=== PATIENT | male | born 1955 | race Caucasian/White ===

== ENCOUNTER 2017-11-22 17:27 | Emergency (ER) | payer BC, OTHER ==
[2017-11-22] MEDS ORDERED: Aspirin 81 MG Tab.Chew ONE (17:47)
[2017-11-22] MEDS ORDERED: Nitroglycerin 0.4 MG Tab.SL ONE (17:47)
[2017-11-22] MEDS ORDERED: Ondansetron 4 MG/2 ML SDV IV ONE ×2 (17:50→18:51)
[2017-11-22] MEDS ORDERED: HYDROmorphone 0.5 MG/0.5 ML Syringe IVPUSH ONE ×4 (17:50→21:17)
[2017-11-22] MEDS ORDERED: Aspirin 81 MG Tab.Chew PO ONE (17:50)
--- NOTE | 2017-11-22 18:12 | EDM.PDOC ---
<Ginny Pablo Hermelindo - Last Filed: 11/22/17 18:06> ED HPI GENERAL MEDICAL PROBLEM - General Chief Complaint: Chest Pain Stated Complaint: [id number] CHEST PAIN SWEATING SOB Time Seen by Provider: 11/22/17 17:30 Source of Information: Reports: Patient, Family, RN, RN Notes Reviewed History Limitations: Reports: No Limitations - History of Present Illness INITIAL COMMENTS - FREE TEXT/NARRATIVE: Jeffy is a 62 yo Male who arrives to the ED with complaints of chest pain. He relates that his pain started an hour ago while he was at work. He describes his pain as crushing pain to his mid chest radiating down to his abdomen. He describes it as "like something is sitting on my chest" Patient reports that he has been short of breath since the onset of symptoms. Reports that his pain is better with movement and deep breathing. He relates nausea, no emesis. Denies any recent illness including fever, cough, or sore throat. Onset: Today Onset Date: 11/22/17 Onset Time: 04:15 Location: Reports: Chest Quality: Reports: Pressure, Sharp Severity: Severe Improves with: Reports: None Worsens with: Reports: Breathing, Movement Associated Symptoms: Reports: Chest Pain, Diaphoresis, Nausea/Vomiting - Related Data Allergies Allergy/AdvReac Type Severity Reaction Status Date / Time No Known Allergies Allergy Verified 10/17/13 06:40 Home Meds: Home Meds Hydrochlorothiazide/Lisinopril [Lisinopril-HCTZ 10-12.5 MG] 10 - 12.5 mg PO DAILY 10/17/13 [History] Ibuprofen 800 mg PO BID 10/17/13 [History] Metoprolol Tartrate 25 mg PO BID 10/17/13 [History] Aspirin 81 mg PO DAILY 11/22/17 [History] Past Medical History Cardiovascular History: Reports: Hypertension ED ROS GENERAL - Review of Systems Review Of Systems: ROS reveals no pertinent complaints other than HPI. ED EXAM, GENERAL - Physical Exam Exam: See Below Exam Limited By: No Limitations General Appearance: Alert, Severe Distress, Obese, Other (Diaphoretic) Eye Exam: Bilateral Eye: PERRL Ears: Normal External Exam, Normal Canal, Hearing Grossly Normal, Normal TMs Ear Exam: Bilateral Ear: Auricle Normal, Canal Normal, TM normal Nose: Normal Inspection, Normal Mucosa, No Blood Throat/Mouth: Normal Inspection, Normal Lips, Normal Teeth, Normal Gums, Normal Oropharynx, Normal Voice, No Airway Compromise Head: Atraumatic, Normocephalic Neck: Normal Inspection, Supple, Non-Tender, Full Range of Motion Respiratory/Chest: Lungs Clear, Normal Breath Sounds, No Accessory Muscle Use, Chest Non-Tender Cardiovascular: Normal Peripheral Pulses, No Edema, No Gallop, No JVD, No Murmur , No Rub, Bradycardia GI/Abdominal: Normal Bowel Sounds, Soft, Non-Tender, No Organomegaly, No Distention, No Abnormal Bruit, No Mass (Male) Exam: Deferred Rectal (Males) Exam: Deferred Back Exam: Normal Inspection, Full Range of Motion, NT Extremities: Normal Inspection, Normal Range of Motion, Non-Tender, Normal Capillary Refill, No Pedal Edema Neurological: Alert, Oriented, CN II-XII Intact, Normal Cognition, Normal Gait, Normal Reflexes, No Motor/Sensory Deficits Psychiatric: Normal Affect, Normal Mood Skin Exam: Warm, No Rash, Diaphoretic, Pallor Lymphatic: No Adenopathy EKG INTERPRETATION EKG Date: 11/22/17 Time: 17:38 Rhythm: Other (Sinus janice) [place]: Normal P-Wave: Present QRS: Normal ST-T: Normal QT: Normal Course - Vital Signs Last Recorded V/S: Last Vital Signs Temp 35.3 C 11/22/17 19:51 Pulse 53 L 11/22/17 19:51 Resp 22 H 11/22/17 19:51 BP 165/80 H 11/22/17 19:51 Pulse Ox 94 L 11/22/17 19:51 - Orders/Labs/Meds Orders: Active Orders 24 hr Category Date Time Status EKG Documentation Completion [RC] URGENT Care 11/22/17 17:30 Active Abdomen Pelvis w Cont [CT] Stat Exams 11/22/17 18:49 Taken Chest 1V Frontal [CR] Urgent Exams 11/22/17 17:30 Taken AMYLASE [CHEM] Stat Lab 11/22/17 17:47 Results LIPASE [CHEM] Stat Lab 11/22/17 17:47 Results HYDROmorphone [Dilaudid] Med 11/22/17 20:37 Once 1 mg IVPUSH ONETIME ONE Lactated Ringers [Ringers, Lactated] 1,000 ml Med 11/22/17 19:45 Active IV ASDIRECTED Medication Orders Lactated Ringer's (Ringers, Lactated) 1,000 mls @ 150 mls/hr IV ASDIRECTED JIMI Last Admin: 11/22/17 19:46 Dose: 150 mls/hr Labs: Laboratory Tests 11/22/17 11/22/17 11/22/17 Range/Units 17:47 17:47 17:47 WBC 15.0 H (5.0-10.0) 10^3/uL RBC 5.39 (4.6-6.2) 10^6/uL Hgb 16.0 (14.0-18.0) g/dL Hct 47.5 (40.0-54.0) % MCV 88.1 (80-100) fL MCH 29.7 (27.0-34.0) pg MCHC 33.7 (33.0-35.0) g/dL Plt Count 273 (150-450) 10^3/uL Neut % (Auto) 57.1 (42.2-75.2) % Lymph % (Auto) 31.2 (20.5-50.1) % [place] % (Auto) 9.5 H (2-8) % Eos % (Auto) 1.7 (1.0-3.0) % Baso % (Auto) 0.5 (0.0-1.0) % PT (9.0-12.0) SEC INR (0.9-1.2) D-Dimer, Quantitative 591 H (0-400) ng/mL Sodium 140 (135-145) mmol/L Potassium 3.7 (3.6-5.0) mmol/L Chloride 103 (101-111) mmol/L Carbon Dioxide 25.0 (21.0-31.0) mmol/L Anion Gap 15.7 BUN 26 H (7-18) mg/dL Creatinine 1.1 (0.6-1.3) mg/dL Est Cr Clr Drug Dosing TNP Estimated GFR (MDRD) > 60 BUN/Creatinine Ratio 23.63 Glucose 153 H (74-105) mg/dL Calcium 9.1 (8.4-10.2) mg/dl Total Bilirubin 1.2 H (0.2-1.0) mg/dL AST 39 (10-42) IU/L ALT 43 (10-60) IU/L Alkaline Phosphatase 69 (42-121) IU/L Troponin I < 0.02 (0.00-0.02) ng/ml Total Protein 7.2 (6.7-8.2) g/dl Albumin 4.0 (3.2-5.5) g/dl Globulin 3.2 Albumin/Globulin Ratio 1.25 Amylase (28-100) U/L 11/22/17 11/22/17 Range/Units 17:47 17:47 WBC (5.0-10.0) 10^3/uL RBC (4.6-6.2) 10^6/uL Hgb (14.0-18.0) g/dL Hct (40.0-54.0) % MCV (80-100) fL MCH (27.0-34.0) pg MCHC (33.0-35.0) g/dL Plt Count (150-450) 10^3/uL Neut % (Auto) (42.2-75.2) % Lymph % (Auto) (20.5-50.1) % [place] % (Auto) (2-8) % Eos % (Auto) (1.0-3.0) % Baso % (Auto) (0.0-1.0) % PT 9.1 (9.0-12.0) SEC INR 0.9 (0.9-1.2) D-Dimer, Quantitative (0-400) ng/mL Sodium (135-145) mmol/L Potassium (3.6-5.0) mmol/L Chloride (101-111) mmol/L Carbon Dioxide (21.0-31.0) mmol/L Anion Gap BUN (7-18) mg/dL Creatinine (0.6-1.3) mg/dL Est Cr Clr Drug Dosing Estimated GFR (MDRD) BUN/Creatinine Ratio Glucose (74-105) mg/dL Calcium (8.4-10.2) mg/dl Total Bilirubin (0.2-1.0) mg/dL AST (10-42) IU/L ALT (10-60) IU/L Alkaline Phosphatase (42-121) IU/L Troponin I (0.00-0.02) ng/ml Total Protein (6.7-8.2) g/dl Albumin (3.2-5.5) g/dl Globulin Albumin/Globulin Ratio Amylase 1952 H (28-100) U/L Meds: Medications Generic Name Dose Route Start Last Admin Trade Name Bianca PRN Reason Stop Dose Admin Lactated Ringer's 1,000 mls @ 150 mls/hr 11/22/17 19:45 11/22/17 19:46 Ringers, Lactated IV 150 mls/hr ASDIRECTED JIMI Administration Discontinued Medications Generic Name Dose Route Start Last Admin Trade Name Bianca PRN Reason Stop Dose Admin Aspirin Confirm 11/22/17 17:47 11/22/17 17:58 Aspirin Administered 11/22/17 17:48 Not Given Dose 324 mg .ROUTE .STK-MED ONE Aspirin 324 mg 11/22/17 17:50 11/22/17 17:58 Aspirin PO 11/22/17 17:51 324 mg ONETIME ONE Administration Hydromorphone HCl 0.5 mg 11/22/17 17:50 11/22/17 17:58 Dilaudid IVPUSH 11/22/17 17:51 0.5 mg ONETIME ONE Administration Hydromorphone HCl 1 mg 11/22/17 18:51 11/22/17 18:56 Dilaudid IVPUSH 11/22/17 18:52 1 mg ONETIME ONE Administration Iopamidol 100 ml 11/22/17 18:17 Isovue-370 (76%) IVPUSH 11/22/17 18:18 ONETIME ONE Nitroglycerin Confirm 11/22/17 17:47 Nitrostat Administered 11/22/17 17:48 Dose 0.4 mg .ROUTE .STK-MED ONE Ondansetron HCl 4 mg 11/22/17 17:50 11/22/17 17:58 Zofran IV 11/22/17 17:51 4 mg ONETIME ONE Administration Ondansetron HCl 4 mg 11/22/17 18:51 11/22/17 18:56 Zofran IV 11/22/17 18:52 4 mg ONETIME ONE Administration Departure - Departure Disposition: DC/Tfer to [facility] 02 Clinical Impression: Pancreatitis, acute Qualifiers: Pancreatitis type: biliary Acute pancreatitis complication: unspecified Qualified Code(s): K85.10 - Biliary acute pancreatitis without necrosis or infection Forms: Interfacility Transfer EMTALA - My Orders Last 24 Hours: My Active Orders 11/22/17 17:47 AMYLASE [CHEM] Stat LIPASE [CHEM] Stat 11/22/17 19:45 Lactated Ringers [Ringers, Lactated] 1,000 ml IV ASDIRECTED 11/22/17 20:37 HYDROmorphone [Dilaudid] 1 mg IVPUSH ONETIME ONE - Assessment/Plan Last 24 Hours: My Active Orders 11/22/17 17:47 AMYLASE [CHEM] Stat LIPASE [CHEM] Stat 11/22/17 19:45 Lactated Ringers [Ringers, Lactated] 1,000 ml IV ASDIRECTED 11/22/17 20:37 HYDROmorphone [Dilaudid] 1 mg IVPUSH ONETIME ONE <Dmitriy sEpino - Last Filed: 11/22/17 20:40> ED HPI GENERAL MEDICAL PROBLEM Chest Pain Score (Numeric/FACES): 9 Course - Re-Assessments/Exams Free Text/Narrative Re-Assessment/Exam: 11/22/17 19:51 results discussed with pt who is much better presently. ate pizza for lunch but nothing prior to onset of Sx. 11/22/17 20:[address] Mann @ who kindly accepted pt. Departure - Departure Time of Disposition: 20:37 Reason for Transfer *Q: Other Condition: Fair
[2017-11-22] MEDS ORDERED: Iopamidol 755 Mg/ML 100 ML Bottle IVPUSH ONE (18:17)
[2017-11-22 18:18] LABS: CHLORIDE,CL 103 mmol/L (101-111); SODIUM,NA 140 mmol/L (135-145)
[2017-11-22] MEDS ORDERED: Lactated Ringers 1,000 ML IV SCH (19:45)
--- NOTE | 2017-11-23 20:14 | EKG ---
11/22/2017 - IRENE NAVARRO - TIME: 1738 hours EKG shows sinus bradycardia, rate of 49 per minute. [facility] /[id number]
== END 2017-11-22 21:27 ==
LOC: DL.ED 17:27
DX: K85.10 Biliary acute pancreatitis without necrosis or infection (principal); I10 Essential (primary) hypertension; Z79.899 Other long term (current) drug therapy; Z79.82 Long term (current) use of aspirin
CPT/HCPCS: 36415; 71045; 74177; 80053; 82150; 83690; 84484; 85025; 85379; 85610; 93005; 96361; 96374; 96375; 96376; 99285; A9270-GY; J1170; J2405; J7120; Q9967